=== PATIENT | female | born 1945 | race Caucasian/White ===

== ENCOUNTER 2024-06-19 13:52 | Outpatient (CLI) | payer MEDICARE, SELFPAY ==
--- NOTE | ~2024-06-19 | XR_ITS ---
EXAMINATION: [id number] DATE: 06/19/2024 14:30 INDICATION: Left knee pain. TECHNIQUE: 2 views of left knee standing were obtained. COMPARISON: None. FINDINGS: Alignment is normal. No fracture. Joint spaces are normal. There is chondrocalcinosis of th e menisci. There is a small knee joint effusion. IMPRESSION: 1. Small knee joint effusion. Reviewed, dictated and finalized at location B. NESS AREA MANAGER
== END 2024-06-19 13:53 | disposition home or self-care (01) ==
LOC: MICIMG 13:53
PROVIDERS: PCP Internal Medicine; Visit Provider Nurse Practitioner Family
DX: M25.462 Effusion, left knee (principal)
CPT/HCPCS: 73560

== ENCOUNTER 2024-12-24 14:12 | Outpatient (CLI) | payer MEDICARE, SELFPAY ==
--- NOTE | ~2024-12-24 | US_ITS ---
US soft tissue LE LT 12/24/2024 15:13 Indication: Left leg swelling popliteal fossa Procedure: Ultrasound of the left popliteal fossa Comparison: Ultrasound dated 12/24/2024 Findings: In the area of palpable concern there is a complex fluid collection measuring 2.7 x 4.9 x 1 .8 cm with heterogeneous internal soft tissue, no internal vascularity or posterior features. Impression: 1: Complex mixed solid and cystic mass left popliteal fossa in the area of palpable concern measuring 4.9 x 1.8 x 2.7 cm. Differential diagnosis includes complicated Casey's cyst, ganglion cyst, synovia l cyst and hematoma. Consider correlation with MRI of the knee with and without contrast. Reviewed, dictated and finalized at location A. Impression: 1: Complex mixed solid and cystic mass left popliteal fossa in the area of palp able concern measuring 4.9 x 1.8 x 2.7 cm. Differential diagnosis includes comp licated Casey's cyst, ganglion cyst, synovial cyst and hematoma. Consider corre lation with MRI of the knee with and without contrast.
--- NOTE | ~2024-12-24 | US_ITS ---
EXAMINATION: US venous doppler [facility] DATE: 12/24/2024 15:13 INDICATION: Left lower limb swelling TECHNIQUE: Grayscale ultrasound images without and with compression and Doppler ultrasound images of the left lower extremity veins were obtained. COMPARISON: None. FINDINGS: The visualized portions of left common femoral vein, profunda (deep) femoral vein, femoral vein, popl iteal vein, peroneal veins, posterior tibial veins, gastrocnemius vein and greater saphenous vein out flow are patent. IMPRESSION: 1. No deep venous thrombosis in the left lower limb. Reviewed, dictated and finalized at location A.
--- OUTSIDE RECORDS SUMMARY | 2024-12-24 14:25 | XMS_ITS | Clinical Summary ---
Author [place] [facility] [place] [address] Address [address] [place] [address] Care Team Providers Care Corporate Intern Name Role Phone Rene Nguyen MD Primary Care Provider + [phone] Allergies No known active allergies Medications aspirin (ASPIR-81) 81 mg tablet take 1 tablet by oral route every day 0 0 03/18/20 16 Active metFORMIN (GLUCOPHAGE) 500 mg tablet take 1 tablet by oral route 2 times every day 0 0 03/18/20 16 Active nitroglycerin (NITROSTAT) 0.[address] 1 tablet by sublingual route at the 1st sign of attack; may repeat every 5 min until relief; if pain persists after 3 tablets in 15 min, prompt medical attention is recommended 0 0 03/18/20 16 Active atorvastatin (LIPITOR) 40 mg tablet Take 1 tablet by mouth once daily 90 tablet 10/28/19 21 Active glimepiride (AMARYL) 4 mg tablet glimepiride 4 mg tablet Take 1 tablet by mouth twice daily Active FLUoxetine (PROzac) 20 mg capsule Take 1 capsule (20 mg total) by mouth daily 05/15/20 21 Active morphine ER (MS CONTIN) 15 mg 12 hr tablet Take 1 tablet (15 mg total) by mouth every 12 (twelve) hours 10/22/19 23 Active Ozempic 0.25 mg or 0.5 mg (2 mg/3 mL) pen injector injection INJECT 0.5 MG SUBCUTANEOUSLY WEEKLY FOR 4 WEEKS 09/23/19 23 Active lisinopriL (PRINIVIL,ZES TRIL) 5 mg tabletIndicat ions:Coronary artery disease of [place] artery of [place] heart with stable angina pectoris,Hype rtension associated with diabetes (HCC) Take 1 tablet (5 mg total) by mouth daily 90 tablet 3 05/03/20 23 Active clopidogreL (PLAVIX) 75 mg tablet Take 1 tablet by mouth once daily 90 tablet 10/03/19 25 Active metoprolol tartrate (LOPRESSOR) 25 mg immediate release tablet Take 1/2 (one-half) tablet by mouth twice daily 90 tablet 2 11/26/19 25 Active metoprolol tartrate (LOPRESSOR) 25 mg immediate release tablet Take 1/2 (one-half) tablet by mouth twice daily 90 tablet 07/31/19 25 2024 Discontinued Active Problems Problem Noted Date Diagnosed Date Preseptal cellulitis of left eye 07/08/2023 Hypertension associated with diabetes 05/03/2023 Claudication 11/27/2018 Hyperlipidemia associated with type 2 diabetes m ellitus 02/16/2017 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 03/18/2016 Overview (09/02/2016): Coronary artery disease involving [place] coronary artery of [place] heart without angina pectoris Presence of stent in coronary artery 03/18/2016 Overview (09/02/2016): Stented coronary artery Tobacco abuse 03/18/2016 Overview (09/02/2016): Tobacco use Resolved Problems Problem Noted Date Diagnosed Date Resolved Date Hyperlipidemia LDL goal <70 03/18/2016 03/04/2020 Overview (09/02/2016): Mixed hyperlipidemia Surgical History Surgery Date Site/Laterality Comments CHOLECYSTECTOMY Cholecystectomy Medical History Medical History Date Comments Anxiety disorder Anxiety Hx Other Medical Gallbladder rem oval; Comments: TYW 03/18/2016 - Hx Other Medical Diabetes type 2 ; Comments: TYW 03/18/2016 - Hx Other Medical noncancerous le ft breast mass removed; Comments: AMD 03/18/2016 - Hx Other Medical X2; C omments: AMD 03/18/2016 - Hypertension Family History Medical History Relation Name Comments Heart attack Brother Myocardial infa rction; Other Father Ruptured colon; Heart attack Mother Myocardial infa rction; Relation Name Status Comments Brother Father Mother Social History Tobacco Use Types Packs/Day Years Used Date Smoking Tobacco: Heavy Smoker Cigarettes Smokeless Tobacco: Never Tobacco Cessation:Ready to Q uit: Not Asked; Counseling Given: Not Answered Comments:Smoking History Packs/day: 0.5 Packs Alcohol Use Standard Drinks/Week Comments No 0 (1 standard drink = 0.6 oz pur e alcohol) Personal Safety Answer Date Recorded Have you ever been in or are you currently in a harmful physical or emotional relationship or is someone making you feel afraid or unsafe? Denies 07/07/2023 Comments No Sex and Gender Information Value Date Recorded Sex Assigned at Not on file Legal Sex Female 4:15 AM VP GENETIC Gender Identity Not on file Sexual Orientation Not on file Obstetrics History Last Filed Vital Signs Vital Sign Reading Time Taken Comments Blood Pressure 112/56 07/16/2024 3:35 PM VP GENETIC Pulse 97 07/16/2024 3:35 PM VP GENETIC Temperature 36.6 C (97.8 F) 07/07/2023 12:18 PM VP GENETIC Respiratory Rate 16 07/07/2023 6:55 PM VP GENETIC Oxygen Saturation 96% 07/16/2024 3:35 PM VP GENETIC Inhaled Oxygen Concentration - - Weight 60.3 kg (133 lb) 07/16/2024 3:35 PM VP GENETIC Height 172.7 cm (5' 8) 07/16/2024 3:35 PM VP GENETIC Body Mass Index 20.22 07/16/2024 3:35 PM VP GENETIC Plan of Treatment Health Maintenance Due Date Last Done Comments Albumin Creatinine Ratio, Urine 1945 Depression Screening 1945 Fall Risk Assessment 1945 Hemoglobin A1C 1945 Hepatitis C Screening 1945 Osteoporosis Screening-Bone Density Scan 1945 Foot Exam 1945 DTaP/Tdap/Td Vaccine (1 - Tdap) 08/19/1958 Hepatitis B Screening 08/19/1965 Pneumococcal vaccine 65+ (1 of 2 - PCV) 08/19/1966 Zoster Vaccine (1 of 2) 08/19/1997 Well Visit 65+ 08/19/2012 Lipid Panel 10/29/2023 10/28/2022, 0205/2021, 03/04/2020, Additional history exists Covid-19 Vaccine (3 - 2023-2 5 season) 2024 05/16/2021, 08/17/2020 Dilated Eye Exam 07/07/2024 07/07/2023 eGFR 07/07/2024 07/07/2023 Influenza Vaccine (#1) 2025 , 01/23/2020, 03/29/2018, Additional history exists Procedures Procedure Name Priority Date/Time Associated Diagnosis Comments EGFR STAT 07/07/2023 3:23 PM VP GENETIC POCT LIPID PANEL Routine 10/28/2022 4:24 PM CDT Coronary artery disease of [place] artery of [place] heart with stable angina pectoris Hyperlipidemia associated with type 2 diabetes mellitus (HCC) from Last 3 Months or Most Recently Relevant to Health Maintenance Results * eGFR (07/07/2023 3:23 PM VP GENETIC) eGFR >90 >=60 mL/min/1. 73 m2 [facility] Comment: Interpretive Data Reference Interval Normal >/= 90 mL/min/1.73m2 Mildly decreased* 60 - 89 mL/min/1.73m2 Mildly to moderately decreased 45 - 59 mL/min/1.73m2 Moderately to severely decreased 30 - 44 mL/min/1.73m2 Severely decreased 15 - 29 mL/min/1.73m2 Kidney Failure < 15 mL/min/1.73m2 *Relative to young adult level Estimated glomerular filtration rate is determined by the 2020 CKD-EPI equation recommended by the National Kidney Foundation (A Unifying Approach to GFR Estimation: Recommendations of the NKF-ASK Task Force on Reassessing the Inclusion of Race in Diagnosing Kidney Disease, JASN 2020). The CKD-EPI equation should not be used for patients with unstable renal function and has not been validated in children and those over 70. Current interpretive data was last reviewed 2021. Blood 07/07/2023 3:23 PM VP GENETIC 07/07/2023 3:51 PM VP GENETIC Bradley Bird MD LAB BLOOD ORDERABLES Fi nal Result [facility] Department [place] [address] * POCT lipid panel (10/28/2022 4:24 PM CDT) Cholesterol, POC 104 mg/dL HDL, POC 28 mg/dL Triglycerides, POC 74 mg/dL LDL Cholesterol POC 61 mg/dL Chol/HDL Ratio, POC 2.1 Non-HDL Cholesterol, POC 76 mg/dL Cholesterol Total, POC 104 mg/dL Capillary blood 10/28/2022 4 :24 PM CDT Neymar Peña MD POINT OF CARE TEST ORDERA BLES Final Result from Last 3 Months or Most Recently Relevant to Health Maintenance Insurance [id number] [place] [address] MEDICARE GOLD AET MEDICARE GOLD [employer]ET[employer] MEDICARE GOLD Care Teams Corporate Intern Relationship Specialty Start Date End Date Rene Nguyen MD PCP - General 08/26/16
--- OUTSIDE RECORDS SUMMARY | 2024-12-24 14:25 | XMS_ITS | Referral Summary ---
Author Organization [facility] [place] [address] Address [address] [place] [address] Care Team Providers Care Paper Products Machine Operator Name Role Phone Rene Nguyen MD Primary Care Provider + [phone] Allergies No known active allergies Medications aspirin [...] 5 mg tabletIndicat ions:Coronary artery disease of [place] artery of [place] heart with stable angina pectoris,Hype rtension associated [...] artery disease of n ative artery of [place] heart with stable angina pectoris 03/18/2016 Overview (09/02/2016): Coronary artery disease involving [place] coronary artery of [place] heart without angina pectoris Presence of stent in coronary artery 03/18/2016 Overview (09/02/2016): Stented coronary artery Tobacco abuse 03/18/2016 Overview (09/02/2016): Tobacco use Resolved Problems Problem Noted Date Diagnosed Date Resolved Date Hyperlipidemia LDL goal <70 03/18/2016 03/04/2020 Overview (09/02/2016): Mixed hyperlipidemia Social History Tobacco Use Types Packs/Day Years [...] on file Legal Sex Female 4:15 AM SHORT STORY WRITER Gender Identity Not on file Sexual Orientation Not on file Last Filed Vital Signs Vital Sign Reading Time Taken Comments Blood Pressure 112/56 07/16/2024 3:35 PM SHORT STORY WRITER Pulse 97 07/16/2024 3:35 PM SHORT STORY WRITER Temperature 36.6 C (97.8 F) 07/07/2023 12:18 PM SHORT STORY WRITER Respiratory Rate 16 07/07/2023 6:55 PM SHORT STORY WRITER Oxygen Saturation 96% 07/16/2024 3:35 PM SHORT STORY WRITER Inhaled Oxygen Concentration - - Weight 60.3 kg (133 lb) 07/16/2024 3:35 PM SHORT STORY WRITER Height 172.7 cm (5' 8) 07/16/2024 3:35 PM SHORT STORY WRITER Body Mass Index 20.22 07/16/2024 3:35 PM SHORT STORY WRITER Plan of Treatment Not on file Procedures Procedure Name Priority Date/Time Associated Diagnosis Comments EGFR STAT 07/07/2023 3:23 PM SHORT STORY WRITER POCT LIPID PANEL Routine 10/28/2022 4:24 PM CDT Coronary artery disease of [place] artery of [place] heart with stable angina pectoris Hyperlipidemia associated with type 2 diabetes mellitus (HCC) from Last 3 Months or Most Recently Relevant to Health Maintenance Results * eGFR (07/07/2023 3:23 PM SHORT STORY WRITER) eGFR >90 >=60 mL/min/1. 73 m2 [facility] Comment: Interpretive Data Reference Interval Normal >/= [...] last reviewed 2021. Blood 07/07/2023 3:23 PM SHORT STORY WRITER 07/07/2023 3:51 PM SHORT STORY WRITER us Bradley Bidr MD LAB BLOOD ORDERABLES Fi nal Result [facility] Department [place] [address] * POCT lipid panel (10/28/2022 4:24 PM CDT) Cholesterol, POC 104 mg/dL HDL, POC 28 mg/dL Triglycerides, POC 74 mg/dL LDL Cholesterol POC 61 mg/dL Chol/HDL Ratio, POC 2.1 Non-HDL Cholesterol, POC 76 mg/dL Cholesterol Total, POC 104 mg/dL Capillary blood 10/28/2022 4 :24 PM CDT us Neymar Peña MD POINT OF CARE TEST ORDERA BLES Final Result from Last 3 Months or Most Recently Relevant to Health Maintenance Insurance [employer] MEDICARE GOLD AETNA MEDICARE GOLD AETNA MEDICARE GOLD Care Teams Paper Products Machine Operator Relationship Specialty Start Date End Date Rene Nguyen MD PCP - General 08/26/16
--- OUTSIDE RECORDS SUMMARY | 2024-12-24 14:26 | XMS_ITS | Data Portability ---
Author Organization [place] [facility] Address [address] [place] [address] Care Team Providers Care Candy Maker Name Role Phone SAUL NGUYEN Primary Care Provider [facility] Pain Management Assessment Encounter Date Assessment Date Assessment LastModified by Organization Details LastModified Time 06/25/2024 06/25/2024 continue current therapy no adjustment on medications pulse rate could be little up from the Ozempic she will see me back in 4 months diabetic foot exam get eye exam report mammogram A1c CMP lipid [email or web address] Not available 06/30/2024 20:50:30 10/23/2024 10/23/2024 Healthy lifestyle instructions discussed in detail quitting tobacco care instructions blood work importance of diabetic control especially with regards to vascular disease again discussed she is again reminded to get a mammogram and colon cancer screening follow up with me in 4 months [email or web address] Not available 11/03/2024 16:05:03 11/15/2024 11/15/2024 She has not picked up the pantoprazole yet. I have told her to go get it I am going to keep her on it for 90 days. No anti-inflammato trenton. We again again reiterated her need to get her diabetes under control. We will get venous duplex left lower extremity and ultrasound popliteal fossa. I wonder if she had a Casey cyst that ruptured she will see me in 1 month. Quitting tobacco care instructions [email or web address] Not available 11/15/2024 15:05:47 12/18/2024 12/18/2024 Get her continuous glucose monitor we are going to help her get that on today and she needs to use it decrease the Humalog to 3 units with meals I will see her back in 1 month she has already started to by all sugar free candy she says that she will not stop buying candy we have had that discussion refuses to see a dietitian quitting tobacco care instructions healthy lifestyle care instructions [email or web address] Not available 12/18/2024 21:41:08 Plan of Treatment Reminders Order Date Submit Date Provider Last Modified By Organization Details Last Modified Time Details Appointments ANY 2024 02:15P Neelam Nguyen MD Not available Not available Not available ANY 2024 01:30P Neelam Nguyen MD Not available Not available Not available Lab albumin/c reatinine , mass ratio, urine 2024 025 [email or web address] [facility], [address], [place], [address], 12/18/2024 17:45:27 CBC w/ auto diff 2024 025 MATT [facility], [address], [place], [address], 12/19/2024 08:30:29 CMP, serum or plasma 2024 025 TRI[facility]IA Jaswant, [address], [place], [address], 12/19/2024 08:30:27 lipid panel, serum 2024 025 TRI[facility]IA Jaswant, [address], [place], [address], 12/19/2024 08:30:25 HbA1c (hemoglob in A1c), blood 2024 025 MATT Millan, [address], [place], [address], 10/24/2024 11:15:12 lipid panel, serum 2024 025 MATT Millan, [address], [place], [address], 10/24/2024 11:15:09 CBC w/ auto diff 2024 025 [facility], [address], [place], [address], 10/24/2024 11:15:13 CMP, serum or plasma 2024 025 MATT [facility], [address], [place], [address], 10/24/2024 11:15:10 albumin/c reatinine , mass ratio, urine 2024 025 [facility], [address], [address], [place], [address], 12/18/2024 15:57:55 HbA1c (hemoglob in A1c), blood 2024 025 [facility], [address], [place], [address], 11/15/2024 09:21:16 lipid panel, serum 2024 025 [facility], [address], [address], [place], [address], 11/15/2024 09:22:07 CBC w/ auto diff 2024 025 [facility], [address], [address], [place], [address], 11/15/2024 09:21:31 CMP, serum or plasma 2024 025 [facility], [address], [address], [place], [address], 11/15/2024 09:21:48 Referral podiatris t referral 2024 025 phani Moreno DPM, [address] [facility], [facility] [address], [place], [address], 12/20/2024 10:42:44 Procedures None recorded. Surgeries None recorded. Imaging US, duplex, venous, lower extremity 2024 025 [facility] (Imaging), [address] [place] [address], [phone], 12/13/2024 09:34:01 US, knee - Popliteal fossa 2024 025 [facility] ([facility]), [address] [place] [address], [phone], 12/13/2024 09:34:01 MAMMO, screening , digital, bilateral 2024 025 [facility] (Im[facility]), [address] [place] [address], [phone], 12/20/2024 10:42:35 Medication Orders Novolog FlexPen U-100 Insulin aspart 100 unit/mL (3 mL) subcutane ous 2024 025 [email or web address] [facility] [address], [address] [facility], [place], [address], 12/18/2024 17:45:27 Patient TargetsNo targets recorded. Patient Instructions Encounter Date Encounter Id Patient Instructions Last Modified By Organization Details Last Modified Time 10/23/2024 [id number] Quitting Tobacco : Care Instructions [email or web address] Not available 10/23/2024 17:11:09 A healthy lifestyle: care instructions Not available 10/23/2024 17:11:09 11/15/2024 [id number] Quitting Tobacco : Care Instructions Not available 11/15/2024 13:17:43 eating healthy foods: care instructions [email or web address] Not available 11/15/2024 13:17:43 12/18/2024 [id number] Quitting Tobacco : Care Instructions [email or web address] Not available 12/18/2024 17:45:27 A healthy lifestyle: care instructions [email or web address] Not available 12/18/2024 17:45:27 Reason for Referral [facility] Department Supervisor Referral for Type 2 diabetes mellitus Referring Physician: Saul Nguyen, Internal Medicine, Encounter Date: 06/25/2024 Results Created Date Observation Date Name Description Value Unit Range Abnormal Flag Note LastModifiedBy Organization Detail LastModifiedTime 10/24/1910/24/2024 LIPID PANEL cholesterol, total 129 mg/dL 100-19 9 Not Available [facility] ([facility]) [address] [place], [address], 10/24/2024 11:15:09 10/24/19 25 10/24/2024 LIPID PANEL triglyceride s 118 mg/dL 0-149 Not Available [facility] ([facility]) [address] [place], [address], 10/24/2024 11:15:09 10/24/19 25 10/24/2024 LIPID PANEL HDL cholesterol 40 mg/dL >39 Not Available [facility] ([facility]) [address] [place], [address], 10/24/2024 11:15:09 10/24/19 25 10/24/2024 LIPID PANEL VLDL cholesterol inna 21 mg/dL 5-40 Not Available [facility] ([facility]) [address] [place], [address], 10/24/2024 11:15:09 10/24/19 25 10/24/2024 LIPID PANEL LDL chol calc ([facility]) 68 mg/dL 0-99 Not Available [facility] ([facility]) [address] [place], [address], 10/24/2024 11:15:09 10/24/19 25 10/24/2024 COMP. METAB OLIC PANEL (14) glucose 158 mg/dL 70-99 above high normal Not Available [facility] ([facility]) [address], [place], [address], 10/24/2024 11:15:10 10/24/19 25 10/24/2024 COMP. METAB OLIC PANEL (14) BUN 12 mg/dL 8-27 Not Available [facility] ([facility]) [address] [place], [address], 10/24/2024 11:15:10 10/24/19 25 10/24/2024 COMP. METAB OLIC PANEL (14) creatinine 0.60 mg/dL 0.57-1 .00 Not Available [facility] ([facility]) [address] [place], [address], 10/24/2024 11:15:10 10/24/19 25 10/24/2024 COMP. METAB OLIC PANEL (14) eGFR 92 mL/mi n/1.7 3 >59 Not Available [facility] ([facility]) [address] [place], [address], 10/24/2024 11:15:10 10/24/19 25 10/24/2024 COMP. METAB OLIC PANEL (14) BUN/creatini ne ratio 20 12-28 Not Available [facility] ([facility]) [address] [place], [address], 10/24/2024 11:15:10 10/24/19 25 10/24/2024 COMP. METAB OLIC PANEL (14) sodium 132 mmol/ L 134-14 4 below low normal Not Available [facility] ([facility]) [address] [place], [address], 10/24/2024 11:15:10 10/24/19 25 10/24/2024 COMP. METAB OLIC PANEL (14) potassium 5.4 mmol/ L 3.5-5. 2 above high normal Not Available [facility] ([facility]) [address] [place], [address], 10/24/2024 11:15:10 10/24/19 25 10/24/2024 COMP. METAB OLIC PANEL (14) chloride 98 mmol/ L 96-106 Not Available [facility] ([facility]) [address] [facility], [place], [address], 10/24/2024 11:15:10 10/24/19 25 10/24/2024 COMP. METAB OLIC PANEL (14) carbon dioxide, total 20 mmol/ L 20-29 Not Available [facility] ([facility]) [address] [facility], [place], [address], 10/24/2024 11:15:10 10/24/19 25 10/24/2024 COMP. METAB OLIC PANEL (14) calcium 9.4 mg/dL 8.7-10 .3 Not Available [facility] ([facility]) [address] [facility], [place], [address], 10/24/2024 11:15:10 10/24/19 25 10/24/2024 COMP. METAB OLIC PANEL (14) protein, total 7.0 g/dL 6.0-8. 5 Not Available [facility] ([facility]) [address] [facility], [place], [address], 10/24/2024 11:15:10 10/24/19 25 10/24/2024 COMP. METAB OLIC PANEL (14) albumin 4.0 g/dL 3.8-4. 8 Not Available [facility] ([facility]) [address] [facility], [place], [address], 10/24/2024 11:15:10 10/24/19 25 10/24/2024 COMP. METAB OLIC PANEL (14) globulin, total 3.0 g/dL 1.5-4. 5 Not Available [facility] ([facility]) [address] [facility], [place], [address], 10/24/2024 11:15:10 10/24/19 25 10/24/2024 COMP. METAB OLIC PANEL (14) bilirubin, total <0.2 mg/dL 0.0-1. 2 Not Available [facility] ([facility]) [address] [facility], [place], [address], 10/24/2024 11:15:10 10/24/19 25 10/24/2024 COMP. METAB OLIC PANEL (14) alkaline phosphatase 85 IU/L 44-121 Not Available [facility] ([facility]) [address] [facility], [place], [address], 10/24/2024 11:15:10 10/24/19 25 10/24/2024 COMP. METAB OLIC PANEL (14) AST (SGOT) 12 IU/L 0-40 Not Available [facility] ([facility]) [address] [facility], [place], [address], 10/24/2024 11:15:10 10/24/19 25 10/24/2024 COMP. METAB OLIC PANEL (14) ALT (SGPT) 7 IU/L 0-32 Not Available [facility] ([facility]) [address] [place], [address], 10/24/2024 11:15:10 10/24/19 25 10/24/2024 HEMOG LOBIN A1C hemoglobin A1C 10.5 % 4.8-5. 6 above high normal Predi abete s: 5.7 - 6.4 Diabe missy: >6.4 Glyce odalys contr ol for adult s with diabe missy: <7.0 Not Available [facility] ([facility]) [address] [place], [address], 10/24/2024 11:15:11 10/24/19 25 10/24/2024 CBC WITH DIFFE RENTI AL/PL ATELE T WBC 10.5 x10e3 /uL 3.4-10 .8 Not Available [facility] ([facility]) [address] [place], [address], 10/24/2024 11:15:13 10/24/19 25 10/24/2024 CBC WITH DIFFE RENTI AL/PL ATELE T RBC 4.60 x10e6 /uL 3.77-5 .28 Not Available [facility] ([facility]) [address] [place], [address], 10/24/2024 11:15:13 10/24/19 25 10/24/2024 CBC WITH DIFFE RENTI AL/PL ATELE T hemoglobin 14.1 g/dL 11.1-1 5.9 Not Available [facility] ([facility]) [address] [place], [address], 10/24/2024 11:15:13 10/24/19 25 10/24/2024 CBC WITH DIFFE RENTI AL/PL ATELE T hematocrit 42.0 % 34.0-4 6.6 Not Available [facility] ([facility]) [address] [place], [address], 10/24/2024 11:15:13 10/24/1910/24/2024 CBC WITH DIFFE RENTI AL/PL ATELE T MCV 91 fL 79-97 Not Available [facility] ([facility]) [address] [place], [address], 10/24/2024 11:15:13 10/24/1910/24/2024 CBC WITH DIFFE RENTI AL/PL ATELE T MCH 30.7 pg 26.6-3 3.0 Not Available [facility] ([facility]) [address] [place], [address], 10/24/2024 11:15:13 10/24/19 25 10/24/2024 CBC WITH DIFFE RENTI AL/PL ATELE T MCHC 33.6 g/dL 31.5-3 5.7 Not Available [facility] ([facility]) [address] [place], [address], 10/24/2024 11:15:13 10/24/19 25 10/24/2024 CBC WITH DIFFE RENTI AL/PL ATELE T RDW 12.1 % 11.7-1 5.4 Not Available [facility] ([facility]) [address] [facility], [place], [address], 10/24/2024 11:15:13 10/24/19 25 10/24/2024 CBC WITH DIFFE RENTI AL/PL ATELE T platelets 414 x10e3 /uL 150-45 0 Not Available [facility] ([facility]) [address] [facility], [place], [address], 10/24/2024 11:15:13 10/24/19 25 10/24/2024 CBC WITH DIFFE RENTI AL/PL ATELE T neutrophils 61 % notest ab. Not Available [facility] ([facility]) [address] [facility], [place], [address], 10/24/2024 11:15:13 10/24/19 25 10/24/2024 CBC WITH DIFFE RENTI AL/PL ATELE T lymphs 30 % notest ab. Not Available [facility] ([facility]) [address] [facility], [place], [address], 10/24/2024 11:15:13 10/24/19 25 10/24/2024 CBC WITH DIFFE RENTI AL/PL ATELE T monocytes 7 % notest ab. Not Available [facility] ([facility]) [address] [facility], [place], [address], 10/24/2024 11:15:13 10/24/19 25 10/24/2024 CBC WITH DIFFE RENTI AL/PL ATELE T eos 1 % notest ab. Not Available [facility] ([facility]) [address] [facility], [place], [address], 10/24/2024 11:15:13 10/24/19 25 10/24/2024 CBC WITH DIFFE RENTI AL/PL ATELE T basos 1 % notest ab. Not Available [facility] ([facility]) [address] [facility], [place], [address], 10/24/2024 11:15:13 10/24/19 25 10/24/2024 CBC WITH DIFFE RENTI AL/PL ATELE T neutrophils (absolute) 6.5 x10e3 /uL 1.4-7. 0 Not Available [facility] ([facility]) [address] [facility], [place], [address], 10/24/2024 11:15:13 10/24/1910/24/2024 CBC WITH DIFFE RENTI AL/PL ATELE T lymphs (absolute) 3.1 x10e3 /uL 0.7-3. 1 Not Available [facility] ([facility]) [address] [facility], [place], [address], 10/24/2024 11:15:13 10/24/19 25 10/24/2024 CBC WITH DIFFE RENTI AL/PL ATELE T monocytes(ab solute) 0.7 x10e3 /uL 0.1-0. 9 Not Available [facility] ([facility]) [address] [place], [address], 10/24/2024 11:15:13 10/24/1910/24/2024 CBC WITH DIFFE RENTI AL/PL ATELE T eos (absolute) 0.1 x10e3 /uL 0.0-0. 4 Not Available [facility] ([facility]) [address] [place], [address], 10/24/2024 11:15:13 10/24/19 25 10/24/2024 CBC WITH DIFFE RENTI AL/PL ATELE T baso (absolute) 0.1 x10e3 /uL 0.0-0. 2 Not Available [facility] ([facility]) [address] [place], [address], 10/24/2024 11:15:13 10/24/19 25 10/24/2024 CBC WITH DIFFE RENTI AL/PL ATELE T immature granulocytes 0 % notest ab. Not Available [facility] ([facility]) [address] [place], [address], 10/24/2024 11:15:13 10/24/19 25 10/24/2024 CBC WITH DIFFE RENTI AL/PL ATELE T immature grans (abs) 0.0 x10e3 /uL 0.0-0. 1 Not Available [facility] ([facility]) [address] [place], [address], 10/24/2024 11:15:13 12/19/19 25 12/19/2024 LIPID PANEL cholesterol, total 113 mg/dL 100-19 9 Not Available [facility] ([facility]) [address] [place], [address], 12/19/2024 08:30:25 12/19/19 25 12/19/2024 LIPID PANEL triglyceride s 98 mg/dL 0-149 Not Available [facility] ([facility]) [address] [place], [address], 12/19/2024 08:30:25 12/19/19 25 12/19/2024 LIPID PANEL HDL cholesterol 38 mg/dL >39 below low normal Not Available [facility] ([facility]) [address] [place], [address], 12/19/2024 08:30:25 12/19/19 25 12/19/2024 LIPID PANEL VLDL cholesterol inna 19 mg/dL 5-40 Not Available [facility] ([facility]) [address] [place], [address], 12/19/2024 08:30:25 12/19/19 25 12/19/2024 LIPID PANEL LDL chol calc ([facility]) 56 mg/dL 0-99 Not Available [facility] ([facility]) [address] [place], [address], 12/19/2024 08:30:25 12/19/19 25 12/19/2024 COMP. METAB OLIC PANEL (14) glucose 182 mg/dL 70-99 above high normal Not Available [facility] ([facility]) [address] [place], [address], 12/19/2024 08:30:27 12/19/19 25 12/19/2024 COMP. METAB OLIC PANEL (14) BUN 13 mg/dL 8-27 Not Available [facility] ([facility]) [address] [place], [address], 12/19/2024 08:30:27 12/19/19 25 12/19/2024 COMP. METAB OLIC PANEL (14) creatinine 0.65 mg/dL 0.57-1 .00 Not Available [facility] ([facility]) [address] [facility], [place], [address], 12/19/2024 08:30:27 12/19/19 25 12/19/2024 COMP. METAB OLIC PANEL (14) eGFR 91 mL/mi n/1.7 3 >59 Not Available [facility] ([facility]) [address] [place], [address], 12/19/2024 08:30:27 12/19/19 25 12/19/2024 COMP. METAB OLIC PANEL (14) BUN/creatini ne ratio 20 12-28 Not Available [facility] ([facility]) [address] [place], [address], 12/19/2024 08:30:27 12/19/19 25 12/19/2024 COMP. METAB OLIC PANEL (14) sodium 133 mmol/ L 134-14 4 below low normal Not Available [facility] ([facility]) [address] [place], [address], 12/19/2024 08:30:27 12/19/19 25 12/19/2024 COMP. METAB OLIC PANEL (14) potassium 5.2 mmol/ L 3.5-5. 2 Not Available [facility] ([facility]) [address] [place], [address], 12/19/2024 08:30:27 12/19/19 25 12/19/2024 COMP. METAB OLIC PANEL (14) chloride 97 mmol/ L 96-106 Not Available [facility] ([facility]) [address] [place], [address], 12/19/2024 08:30:27 12/19/19 25 12/19/2024 COMP. METAB OLIC PANEL (14) carbon dioxide, total 21 mmol/ L 20-29 Not Available [facility] ([facility]) [address] [place], [address], 12/19/2024 08:30:27 12/19/19 25 12/19/2024 COMP. METAB OLIC PANEL (14) calcium 9.3 mg/dL 8.7-10 .3 Not Available [facility] ([facility]) [address] [place], [address], 12/19/2024 08:30:27 12/19/19 25 12/19/2024 COMP. METAB OLIC PANEL (14) protein, total 6.8 g/dL 6.0-8. 5 Not Available [facility] ([facility]) [address] [place], [address], 12/19/2024 08:30:27 12/19/19 25 12/19/2024 COMP. METAB OLIC PANEL (14) albumin 4.0 g/dL 3.8-4. 8 Not Available [facility] ([facility]) [address] [place], [address], 12/19/2024 08:30:27 12/19/19 25 12/19/2024 COMP. METAB OLIC PANEL (14) globulin, total 2.8 g/dL 1.5-4. 5 Not Available [facility] ([facility]) [address] [facility], [place], [address], 12/19/2024 08:30:27 12/19/19 25 12/19/2024 COMP. METAB OLIC PANEL (14) bilirubin, total 0.2 mg/dL 0.0-1. 2 Not Available [facility] ([facility]) [address] [facility], [place], [address], 12/19/2024 08:30:27 12/19/19 25 12/19/2024 COMP. METAB OLIC PANEL (14) alkaline phosphatase 75 IU/L 44-121 Not Available [facility] ([facility]) [address] [facility], [place], [address], 12/19/2024 08:30:27 12/19/19 25 12/19/2024 COMP. METAB OLIC PANEL (14) AST (SGOT) 9 IU/L 0-40 Not Available [facility] ([facility]) [address] [place], [address], 12/19/2024 08:30:27 12/19/19 25 12/19/2024 COMP. METAB OLIC PANEL (14) ALT (SGPT) 4 IU/L 0-32 Not Available [facility] ([facility]) [address] [facility], [place], [address], 12/19/2024 08:30:27 12/19/19 25 12/19/2024 CBC WITH DIFFE RENTI AL/PL ATELE T WBC 9.6 x10e3 /uL 3.4-10 .8 Not Available [facility] ([facility]) [address] [facility], [place], [address], 12/19/2024 08:30:29 12/19/19 25 12/19/2024 CBC WITH DIFFE RENTI AL/PL ATELE T RBC 4.90 x10e6 /uL 3.77-5 .28 Not Available [facility] ([facility]) [address] [place], [address], 12/19/2024 08:30:29 12/19/1912/19/2024 CBC WITH DIFFE RENTI AL/PL ATELE T hemoglobin 14.0 g/dL 11.1-1 5.9 Not Available [facility] ([facility]) [address] [place], [address], 12/19/2024 08:30:29 12/19/1912/19/2024 CBC WITH DIFFE RENTI AL/PL ATELE T hematocrit 44.0 % 34.0-4 6.6 Not Available [facility] ([facility]) [address] [place], [address], 12/19/2024 08:30:29 12/19/1912/19/2024 CBC WITH DIFFE RENTI AL/PL ATELE T MCV 90 fL 79-97 Not Available [facility] ([facility]) [address] [place], [address], 12/19/2024 08:30:29 12/19/1912/19/2024 CBC WITH DIFFE RENTI AL/PL ATELE T MCH 28.6 pg 26.6-3 3.0 Not Available [facility] ([facility]) [address] [place], [address], 12/19/2024 08:30:29 12/19/1912/19/2024 CBC WITH DIFFE RENTI AL/PL ATELE T MCHC 31.8 g/dL 31.5-3 5.7 Not Available [facility] ([facility]) [address] [place], [address], 12/19/2024 08:30:29 12/19/19 25 12/19/2024 CBC WITH DIFFE RENTI AL/PL ATELE T RDW 11.9 % 11.7-1 5.4 Not Available [facility] ([facility]) [address] [facility], [place], [address], 12/19/2024 08:30:29 12/19/19 25 12/19/2024 CBC WITH DIFFE RENTI AL/PL ATELE T platelets 424 x10e3 /uL 150-45 0 Not Available [facility] ([facility]) [address] [facility], [place], [address], 12/19/2024 08:30:29 12/19/19 25 12/19/2024 CBC WITH DIFFE RENTI AL/PL ATELE T neutrophils 61 % notest ab. Not Available [facility] ([facility]) [address] [facility], [place], [address], 12/19/2024 08:30:29 12/19/19 25 12/19/2024 CBC WITH DIFFE RENTI AL/PL ATELE T lymphs 29 % notest ab. Not Available [facility] ([facility]) [address] [facility], [place], [address], 12/19/2024 08:30:29 12/19/19 25 12/19/2024 CBC WITH DIFFE RENTI AL/PL ATELE T monocytes 8 % notest ab. Not Available [facility] ([facility]) [address] [facility], [place], [address], 12/19/2024 08:30:29 12/19/19 25 12/19/2024 CBC WITH DIFFE RENTI AL/PL ATELE T eos 1 % notest ab. Not Available [facility] ([facility]) [address] [facility], [place], [address], 12/19/2024 08:30:29 12/19/19 25 12/19/2024 CBC WITH DIFFE RENTI AL/PL ATELE T basos 1 % notest ab. Not Available [facility] ([facility]) [address] [facility], [place], [address], 12/19/2024 08:30:29 12/19/19 25 12/19/2024 CBC WITH DIFFE RENTI AL/PL ATELE T neutrophils (absolute) 5.9 x10e3 /uL 1.4-7. 0 Not Available [facility] ([facility]) [address] [facility], [place], [address], 12/19/2024 08:30:29 12/19/19 25 12/19/2024 CBC WITH DIFFE RENTI AL/PL ATELE T lymphs (absolute) 2.8 x10e3 /uL 0.7-3. 1 Not Available [facility] ([facility]) [address] [facility], [place], [address], 12/19/2024 08:30:29 12/19/19 25 12/19/2024 CBC WITH DIFFE RENTI AL/PL ATELE T monocytes(ab solute) 0.8 x10e3 /uL 0.1-0. 9 Not Available [facility] ([facility]) [address] [facility], [place], [address], 12/19/2024 08:30:29 12/19/19 25 12/19/2024 CBC WITH DIFFE RENTI AL/PL ATELE T eos (absolute) 0.1 x10e3 /uL 0.0-0. 4 Not Available [facility] ([facility]) [address] [place], [address], 12/19/2024 08:30:29 12/19/19 25 12/19/2024 CBC WITH DIFFE RENTI AL/PL ATELE T baso (absolute) 0.1 x10e3 /uL 0.0-0. 2 Not Available [facility] ([facility]) [address] [facility], [place], [address], 12/19/2024 08:30:29 12/19/19 25 12/19/2024 CBC WITH DIFFE RENTI AL/PL ATELE T immature granulocytes 0 % notest ab. Not Available [facility] ([facility]) [address] [facility], [place], [address], 12/19/2024 08:30:29 12/19/19 25 12/19/2024 CBC WITH DIFFE RENTI AL/PL ATELE T immature grans (abs) 0.0 x10e3 /uL 0.0-0. 1 Not Available [facility] ([facility]) [address] [facility], [place], [address], 12/19/2024 08:30:29 06/19/1906/19/2024 XR, knee, 1 or 2 view No observ ation record ed. [facility] [address] [facility], [place], [address], 06/20/2024 09:28:18 Result Notes None recorded. Problems Name Problem SNOMED Code Status Onset Date Resolution Date Notes Provider Name and Address Organization Details Recorded Time Essential hypertension 98542353 Active 2023 Julián Pinto MA null, [place] - [facility] 4 09:04:27 Hyperlipidemia 00277681 Active 2023 Julián Pinto [place], [place] [facility] 4 09:04:32 Type 2 diabetes mellitus 14685862 Active 2023 Julián Pinto MA null, [place] - [facility] 4 09:04:35 Chronic low back pain 704042039 Active 2023 Julián Pinto [place] null, [place] - [facility] 4 09:04:48 Tobacco dependence syndrome 68205070 Active 2023 Julián Pinto [place], [place] [facility] 4 09:05:29 Coronary arterioscleros is 62585117 Active 2024 Saul Nguyen MD Attn: Bahman lopez,[address] [facility], [place], [address] , [place] - [facility] 16:04:27 Problem Notes None recorded. Procedures Surgical History Date Name Laterality Status Provider Name and Address Organization Details Recorded Time section completed [facility]adiallo [facility] 08/17/2023 15:38:49 cholecystectomy completed Jessa Viv [facility] 08/17/2023 15:39:04 Imaging Results None recorded. Procedure Notes None recorded. Medical Equipment None Reported. Allergies No known drug allergies Medications Name Sig Start Date Stop Date Status Note LastModified by Organization Details LastModified Time atorvasta tin 40 mg tablet TAKE 1 TABLET BY MOUTH ONCE DAILY active Not Available Not Available No t Available clopidogr el 75 mg tablet TAKE 1 TABLET BY MOUTH ONCE DAILY active Not Available Not Available No t Available sulfameth oxazole 800 mg-trimet hoprim 160 mg tablet TAKE 2 TABLETS BY MOUTH TWICE DAILY FOR 7 DAYS 08/16 completed Not Available Not Available Not Available pantopraz ole 40 mg tablet,de layed release Take 1 tablet every day by oral route for 90 days. 2024 active Not Available Not Available Not Avai lable metformin 1,000 mg tablet TAKE 1 TABLET BY MOUTH TWICE DAILY active Not Available Not Available No t Available glimepiri de 4 mg tablet TAKE 1 TABLET BY MOUTH TWICE DAILY active Not Available Not Available No t Available morphine ER 15 mg tablet,ex tended release TAKE 1 TABLET BY MOUTH EVERY 12 HOURS. *DNF UNTIL 11/25/24 active Not Available Not Available No t Available lisinopri l 5 mg tablet TAKE 1 TABLET BY MOUTH ONCE DAILY 12/18 completed Not Available Not Available Not Available albuterol sulfate HFA 90 mcg/actua tion aerosol inhaler INHALE 2 PUFFS BY MOUTH EVERY 4 HOURS 2024 active Not Available Not Available Not Avai lable lisinopri l 2.5 mg tablet TAKE 1 TABLET BY MOUTH ONCE DAILY active Not Available Not Available No t Available amoxicill in 875 mg-potass ium clavulana te 125 mg tablet TAKE 1 TABLET BY MOUTH TWICE DAILY FOR 7 DAYS 08/16 completed Not Available Not Available Not Available Novolog FlexPen U-100 Insulin aspart 100 unit/mL (3 mL) subcutane ous INJECT 3 UNITS SUBCUTAN EOUSLY THREE TIMES DAILY WITH MEALS 2024 active Not Available Not Available Not Avai lable metoprolo l tartrate 25 mg tablet TAKE 1/2 (ONE-KATIE F) TABLET BY MOUTH TWICE DAILY active Not Available Not Available No t Available BD Ultra-Fin e Short Pen Needle 31 gauge x 5/16 USE TO INJECT INSULIN THREE TIMES DAILY active Not Available Not Available No t Available Humalog KwikPen (U-100) Insulin 100 unit/mL subcutane ous Inject 5 units 3 times a day by subcutan eous route with meal(s). 2024 active Not Available Not Available Not Avai lable naloxone 4 mg/actuat ion nasal spray USE 1 SPRAY INTRANAS ALLY ONCE FOR OVERSEDA TION, REPEAT 2-3 MINUTES IF NEEDED active Not Available Not Available No t Available Ozempic 0.25 mg or 0.5 mg (2 mg/1.5 mL) subcutane ous pen injector INJECT 0.25 MG SUBCUTAN EOUSLY EACH WEEK FOR 4 WEEKS AND THEN GO TO 0.5 MG WEEKLY 08/16 completed Not Available Not Available Not Available Ozempic 1 mg/dose (4 mg/3 mL) subcutane ous pen injector INJECT 1MG SUB-Q ONCE A WEEK 12/18 completed Pt states she stopped taking this. Not Available Not Available Not Available Ozempic 0.25 mg or 0.5 mg (2 mg/3 mL) subcutane ous pen injector INJECT 0.25 MG SUBCUTAN EOUSLY EVERY WEEK 11/15 completed Not Available Not Available Not Available FreeStyle Arnoldo 3 [place] USE DIRECTED active Not Available Not Available No t Available FreeStyle Arnoldo 3 Plus Sensor device USE DIRECTED TO CHECK BLOOD SUGAR active Not Available Not Available No t Available Vitals Date Recorded Body height Body mass index (BMI) Body weight Heart rate Oxygen saturation Oxygen saturation in Arterial blood by Pulse oximetry Systolic And Diastolic Provider Name and Address Organization Details Last Updated DateTime 5 172.72 cm 20.9 kg/m2 03503.5 9 g 101 /min 96 % 96 % 132/82 mm[Hg] Ute Coleraine, [place] - [facility] 5 15:19:44 Date Recorded Body height Body mass index (BMI) Body weight Heart rate Oxygen saturation Oxygen saturation in Arterial blood by Pulse oximetry Systolic And Diastolic Provider Name and Address Organization Details Last Updated DateTime 5 172.72 cm 20.2 kg/m2 52460.1 4 g 81 /min 96 % 96 % 128/68 mm[Hg] Hiral Vasquez MA [facility] 5 15:01:49 Date Recorded Body height Body mass index (BMI) Body weight Heart rate Oxygen saturation Oxygen saturation in Arterial blood by Pulse oximetry Systolic And Diastolic Provider Name and Address Organization Details Last Updated DateTime 5 172.72 cm 19.9 kg/m2 34282.1 6 g 91 /min 95 % 95 % 130/70 mm[Hg] Ute Rosenbaum MA [facility] 5 12:47:00 Date Recorded Body height Provider Name an d Address Organization Details Last Updated DateTime 11/28/2024 172.72 cm Mariana Downey LPN [facility] 11/29/19 25 16:17:23 Date Recorded Body height Body mass index (BMI) Body weight Heart rate Oxygen saturation Oxygen saturation in Arterial blood by Pulse oximetry Systolic And Diastolic Provider Name and Address Organization Details Last Updated DateTime 5 172.72 cm 19.4 kg/m2 96515.3 1 g 83 /min 96 % 96 % 124/70 mm[Hg] Hiral Vasquez MA [facility] 5 15:05:57 Social History Question Answer Notes LastModified by Organizat ion Details LastModified Time Tobacco Smoking Status Current Every Day Smoker Jessa Anand MA [facility], [facility] 08/17/2023 15:36:49 Do You Have An Advance Directive? No Information n ot available 03/19/2024 Are You Blind Or Do You Have Difficulty Seeing? No Information n ot available 03/19/2024 What Is Your Level Of Caffeine Consumption? Moderate Information not available 03/19/2024 In The 14 Days Before Symptom Onset, Have You Had Close Contact With A Laboratory-confirm ed COVID-19 While That Case Was Ill? No Information n ot available 03/19/2024 In The 14 Days Before Symptom Onset, Have You Had Close Contact With A Person Who Is Under Investigation For COVID-19 While That Person Was Ill? No Information not available 03/19/2024 Have You Been To An Area Known To Be High Risk For COVID-19? No Information not available 03/19/2024 Are You Deaf Or Do You Have Serious Difficulty Hearing? No Information not available 03/19/2024 What Type Of Diet Are You Following? REGULAR Information n ot available 03/19/2024 Are There Any Guns Present In Your Home? No Information not available 03/19/2024 What Was The Date Of Your Most Recent Tobacco Screening? 12/18/2024 Information not available 12/18/2024 Do You Use Your Seat Belt Or Car Seat Routinely? Yes Information not available 03/19/2024 Do You Have Smoke And Carbon Monoxide Detectors In Your Home? Yes Information not available 03/19/2024 How Much Tobacco Do You Smoke? 1 PPD Information not available 08/17/2023 Do You Use Sunscreen Routinely? Yes Information not available 03/19/2024 Has Tobacco Cessation Counseling Been Provided? Yes Information not available 08/17/2023 On What Date Was Tobacco Cessation Counseling Provided? 12/18/2024 Information not available 12/18/2024 Sex: Female Functional Status Question Answer Note LastModified by Organizat ion Details LastModified Time Do you use any illicit or recreational drugs? No Information not available 08/17/2023 Do you or have you ever used any other forms of tobacco or nicotine? Yes Information not available 08/17/2023 What is your level of alcohol consumption? None Information not available 08/17/2023 Do you or have you ever used smokeless tobacco? Never used smokeless tobacco Information not available 03/19/2024 Are you able to care for yourself independently? Yes Information not available 03/19/2024 Do you or have you ever used e-cigarettes or vape? Never used electronic cigarettes Information not available 03/19/2024 Mental Status None recorded. Family History Relationship Description Onset Age of this Age Resolved Age Notes LastModified by Organization Details LastModified Time Mother Diabetes mellitus [email or web address] Not available 2023 15:45:58 Mother Heart disease [email or web address] Not available 2023 15:46:12 Mother Migraine [email or web address] Not available 08/17/2023 15:46:48 Father Heart disease [email or web address] Not available 2023 15:46:12 Father Hypercholest erolemia [email or web address] Not available 2023 15:46:21 Father Kidney disease [email or web address] Not available 2023 15:46:33 Sister Migraine [email or web address] Not available 08/17/2023 15:46:48 Medical History Condition Response Coronary Artery Disease N Other N Atrial Fibrillation N High Blood Pressure Y Depression N COPD Y Blood Clots N Anxiety Disorder N Muscle, Joint, or Bone Problems Y Acid Reflux (GERD) N Cancer N Stroke Y High Cholesterol Y Liver Disease N Headaches N Kidney or Bladder Problems N Thyroid Problems N GI Problems N Have you had a mammogram in the last yea r? N Skin Problems N Anemia N Heart Attack (SD) N Diabetes Y Seizures/Epilepsy N Have you had a colonoscopy in the last 1 0 years? Y Asthma Y Allergies N Have you had a PSA blood test in the las t year? N Hepatitis N Heart Failure N Osteoporosis N Gynecological HistoryNo gynecological history recorded. Obstetrics History GPAL:G 0 P 0 0 0 0 Immunizations Vaccine Type Date Status Note Provider Nam e and Address Organization Details Recorded Time Influenza, split virus, quadrivalent, preservative 7 completed KIERRA Meléndez, [place] - [facility] 12/19/2023 14:18:22 Influenza, adjuvanted, trivalent, PF 7 completed KIERRA Meléndez, [place] [facility] 12/19/2023 14:18:22 Influenza, high-dose, quadrivalent, PF 0 completed KIERRA Mel[place] [facility] 12/19/2023 14:18:22 Influenza, high-dose, quadrivalent, PF 1 completed KIERRA [place] [facility] 12/19/2023 14:18:22 Influenza, high-dose, quadrivalent, PF 2 completed KIERRA [place] [facility] 12/19/2023 14:18:22 Influenza, high-dose, quadrivalent, PF 3 completed Zechariah Trejo [place], [place] [facility] 12/19/2023 14:18:22 COVID-19, mRNA, LNP-S, PF, 100 mcg/0.5mL dose or 50 mcg/0.25mL dose 1 completed Zechariah Trejo [place], [place] [facility] 12/19/2023 14:18:22 COVID-19, mRNA, LNP-S, PF, 100 mcg/0.5mL dose or 50 mcg/0.25mL dose 1 completed Zechariah Trejo [place] [facility] 12/19/2023 14:18:22 Pneumococcal conjugate PCV20, polysaccharide [id number] conjugate, adjuvant, PF 2 completed KIERRA Meléndez, [place] [facility] 12/19/2023 14:18:22 COVID-19, mRNA, LNP-S, bivalent, PF, 50 mcg/0.5 mL or 25mcg/0.25 mL dose 2 completed Zechariah Trejo [place] [facility] 12/19/2023 14:18:22 influenza, unspecified formulation 8 completed KIERRA Mel[place]dez, [place] [facility] 12/19/2023 14:18:22 Influenza, high-dose, trivalent, PF 3 completed KIERRA [place]dez[place] [facility] 12/19/2023 14:18:22 Influenza, high-dose, trivalent, PF 8 completed Zechariah Tre[place] [facility] 12/19/2023 14:18:22 Influenza, high-dose, trivalent, PF 6 completed Zechariah Tre[place] [facility] 12/19/2023 14:18:22 Influenza, split virus, quadrivalent, PF 5 completed Zechariah Tre[place] [facility] 12/19/2023 14:18:22 Influenza, high-dose, trivalent, PF 4 completed Saul Nguyen MD Attn: Accounting,[address] [place], [address], [facility] - [facility] 03/31/2024 11:52:58 Past Encounters Encounter ID Performer Location Encounter Start Date Encounter Closed Date Diagnosis/Indication Diagnosis SNOMED-CT Code Diagnosis ICD10 Code Diagnosis Note [id number] [facility] [address] [place] [id number] 08/17/2023 15:03:20 08/17/2023 16:50:28 Essential hypertension 54662193 I10 Hyperlipidemia 16744370 E78.5 Diabetes mellitus 426522 09 E11.9 Chronic low back pain 27 9661809 M54.50 Tobacco de pendence syndrome 46122187 F17.471 [id number] MD Rad Guillen (Adult Med) [address] [place] [id number] 12/19/2023 13:59:57 12/19/2023 15:35:49 Essential hypertension 29143852 I10 Type 2 katherine betes mellitus 20171455 E11.9 Hyperlipidemia 73441236 E78.5 Chronic low back pain 27 4884236 M54.50 Tobacco de pendence syndrome 41358205 F17.200 Chronic ob structive pulmonary disease 54917746 J44.9 [id number] [facility] [address] [place] [id number] 03/19/2024 14:05:21 03/19/2024 15:19:18 Body mass index 20-24 - normal 025650704 Z68.21 Type 2 katherine betes mellitus 08007186 E11.9 Administra tion of influenza vaccine 40753177 Z23 Essential hypertension 84065396 I10 Hyperlipidemia 43517214 E78.5 Chronic low back pain 27 2317356 M54.50 [id number] MD Rad Guillen (Adult Med) [address] [place] [id number] 06/25/2024 14:40:25 06/25/2024 17:03:01 Body mass index 20-24 - normal 533693180 Z68.21 Screening mammography 24 994595 Z12.31 Essential hypertension 86531742 I10 Type 2 katherine betes mellitus 16326418 E11.9 Hyperlipidemia 23463797 E78.5 [id number] Saul Nguyen MD [facility] (Adult Med) [address] [place] [phone] 10/23/2024 14:46:08 10/23/2024 16:00:23 Smoker 39851992 F17.200 Body mass index 20-24 - normal 492543075 Z68.20 Essential hypertension 65967013 I10 Type 2 katherine betes mellitus 16685673 E11.9 Chronic low back pain 27 5310470 M54.50 Tobacco de pendence syndrome 23248802 F17.165 [id number] Saul Nguyen MD [facility] (Adult Med) [address] [place] [id number] 11/15/2024 12:02:05 11/15/2024 14:22:38 Body mass index less than 20 241084447 Z68.1 Smoker 39266132 F17.200 Abdominal pain 90946769 R10.9 Swelling o f left lower limb 504366973 M79.89 [id number] Saul Nguyen MD [facility] [address] [place] [address] 11/28/2024 16:04:57 12/04/2024 03:47:45 [id number] MD Rad Guillen (Adult Med) [address] [place] [id number] 12/18/2024 14:47:48 12/18/2024 16:06:55 Smoker 83496657 F17.200 Body mass index less than 20 688388267 Z68.1 BMI 19.4 Type 2 katherine betes mellitus 15684599 E11.9 Diabetes mellitus 333730 09 E11.9 Health Concerns Section Related Observation LastModified by Organization Detai ls LastModified Time None Recorded Concern Status LastModified by Organization Details LastModified Time None Recorded Advance Directives Directive N: Payers Insurance Date Sequence Insurance Name Policy Number Policy Barrientos Covered Member ID Barrientos Member ID Guarantor Name 12/15/2024 1 [employer] - PRIME (MEDICARE REPLACEMENT/ ADVANTAGE - HMO) [id number] Rosalia Paul [id number] Rosalia Paul OBGyn Episode No OBEpisode recorded.
== END 2024-12-24 14:13 | disposition home or self-care (01) ==
PROVIDERS: PCP Internal Medicine; Visit Provider Internal Medicine
DX: M79.89 Other specified soft tissue disorders (principal)
CPT/HCPCS: 76882; 93971